=== PATIENT | female | born 1980 | race Caucasian/White ===

== ENCOUNTER 2020-01-02 14:54 | Emergency (ER) | payer MEDICAID, OTHER ==
[~2020-01-02] VITALS: Ht 165.1 cm; Wt 65.9 kg
[2020-01-02 15:15] VITALS: BP 131/74
[2020-01-02 15:24] LABS: COVID AG,FIA SOURCE NASOPHARYNGEAL
== END 2020-01-02 15:29 | disposition home or self-care (01) ==
LOC: EMS 14:54
DX: Z20.828 Contact with and (suspected) exposure to other viral communicable diseases (principal)
CPT/HCPCS: 87426; 99283; C9803; U0003